=== PATIENT | female | born 1935 | race Caucasian/White ===

== ENCOUNTER 2017-07-03 23:50 | Observation (INO) | payer OTHER ==
[2017-07-04] MEDS: SOD CHLORIDE 0.9% 500 ML IV (02:24)
[2017-07-04 03:20] LABS: ADD MAN DIFF? NO
[2017-07-04 03:22] LABS: WHITE BLOOD COUNT 15.7 10^3/ul (4.8-10.8)
[2017-07-04 03:22] LABS: ABNORMAL IP MESSAGE 1; BASOPHILS % 0.1 % (0.0-2.0); EOSINOPHILS % 0.1 % (0.0-7.0); HEMATOCRIT 40.9 % (37.0-47.0); HEMOGLOBIN 13.3 g/dl (12.0-16.0); LYMPHOCYTES # 0.6 10^3/ul (0.8-2.9); LYMPHOCYTES % 3.6 % (15.0-51.0); MEAN CORPUSCULAR HGB CONC 32.5 g/dl (32.0-37.0); MEAN CORPUSCULAR VOLUME 92.1 fl (82.0-101.0); MONOCYTE # 1.1 10^3/ul (0.3-0.9); MONOCYTES % 7.1 % (0.0-11.0); NEUTROPHIL # 13.9 10^3/ul (1.6-7.5); NEUTROPHILS % 88.4 % (39.0-77.0); PLATELET COUNT 183 10^3/UL (140-415); RED BLOOD COUNT 4.44 10^6/ul (4.20-5.40); RED CELL DISTRIBUTION WIDTH 14.1 % (11.5-14.5)
[2017-07-04 03:23] LABS: POSITIVE DIFF @See below
[2017-07-04 03:57] LABS: ALANINE AMINOTRANSFERASE 43 IU/L (13-69); ALBUMIN 4.1 g/dl (3.3-4.9); ALBUMIN/GLOBULIN RATIO 1.64; ALKALINE PHOSPHATASE 97 IU/L (42-121); ANION GAP 16 (8-16); ASPARTATE AMINO TRANSFERASE 33 IU/L (15-46); BILIRUBIN,INDIRECT 0.6 mg/dl (0-1.1); BILIRUBIN,TOTAL 0.6 mg/dl (0.2-1.3); BLOOD UREA NITROGEN 14 mg/dl (7-20); CALCIUM 9.7 mg/dl (8.4-10.2); CARBON DIOXIDE 27 mmol/L (21-31); CHLORIDE 105 mmol/L (97-110); CREATININE 0.88 mg/dl (0.44-1.00); GLUCOSE 108 mg/dl (70-220); LIPASE 50 U/L (23-300); POTASSIUM 4.1 mmol/L (3.5-5.1); SODIUM 144 mmol/L (135-144); TOTAL PROTEIN 6.6 g/dl (6.1-8.1)
[2017-07-04 04:01] LABS: ADD UMIC NO; UR ASCORBIC ACID 40 mg/dL (NEGATIVE); UR BILIRUBIN (Dip) NEGATIVE (NEGATIVE); UR BLOOD (Dip) NEGATIVE (NEGATIVE); UR CLARITY CLEAR (CLEAR); UR COLOR YELLOW (YELLOW); UR GLUCOSE (Dip) NEGATIVE (NEGATIVE); UR KETONES (Dip) NEGATIVE (NEGATIVE); UR LEUKOCYTE ESTERASE (Dip) NEGATIVE Leu/ul (NEGATIVE); UR NITRITE (Dip) NEGATIVE (NEGATIVE); UR SPECIFIC GRAVITY (Dip) 1.015 (1.003-1.030); UR TOTAL PROTEIN (Dip) NEGATIVE (NEGATIVE); UR UROBILINOGEN (Dip) NEGATIVE (NEGATIVE)
[2017-07-04] MEDS: CIPROFLOXACIN 400MG/D5W 200 ML IVPB (04:34)
[2017-07-04] MEDS ORDERED: morphine 2 MG INJ IV (07:00)
[2017-07-04] MEDS ORDERED: ONDANSETRON 4 MG INJ IV (07:00)
[2017-07-04] MEDS ORDERED: NACL 0.9% 3 ML SYG IV (07:00)
[2017-07-04] MEDS ORDERED: ALBUTEROL HFA 8 GM INHALER INH (07:00)
[2017-07-04] MEDS: SOD CHLORIDE 0.9% 1,000 ML IV ×2 (07:27→16:00)
[2017-07-04] MEDS: HEPARIN 5,000 UNIT/0.5 ML VIAL SC ×2 (08:26→21:31)
[2017-07-04] MEDS ORDERED: ASPIRIN (EC) 81 MG TAB PO (09:00)
[2017-07-04] MEDS ORDERED: CIPROFLOXACIN 400MG/D5W 200 ML IVPB (09:00)
[2017-07-04] MEDS: TRIMETHOPRIM/SULFAMETHOX (DS) TAB PO ×2 (09:32→21:29)
[2017-07-04] MEDS: ESCITALOPRAM 10 MG TAB PO (09:33)
[2017-07-04] MEDS: ASCORBIC ACID 500 MG TAB PO (09:36)
[2017-07-04] MEDS: ACETAMINOPHEN 325 MG TAB PO ×2 (09:38→21:29)
[2017-07-04] MEDS: ALBUTEROL/IPRATROPIUM (NEB) 3 ML AMP HHN (09:43)
[2017-07-04] MEDS: FLUDROCORTISONE 0.1 MG TAB PO (10:47)
[2017-07-04] MEDS ORDERED: ZOLPIDEM 5 MG TAB PO (14:30)
[2017-07-04] MEDS ORDERED: traMADol 50 MG TAB NGT (17:30)
[2017-07-04] MEDS ORDERED: PATIENT'S OWN MEDICATION PO (18:30)
[2017-07-04] MEDS: ATORVASTATIN 10 MG TAB PO (21:00)
[2017-07-04] MEDS: ASPIRIN (EC) 81 MG TAB PO (21:29)
[2017-07-04] MEDS: DONEPEZIL 5 MG TAB PO (21:29)
[2017-07-05 05:08] LABS: ADD MAN DIFF? NO
[2017-07-05 05:13] LABS: BASOPHILS % 0.4 % (0.0-2.0); EOSINOPHILS # 0.3 10^3/ul (0.0-0.5); EOSINOPHILS % 3.7 % (0.0-7.0); HEMATOCRIT 32.5 % (37.0-47.0); HEMOGLOBIN 10.5 g/dl (12.0-16.0); LYMPHOCYTES # 1.1 10^3/ul (0.8-2.9); LYMPHOCYTES % 13.6 % (15.0-51.0); MEAN CORPUSCULAR HEMOGLOBIN 29.6 pg (29.0-33.0); MEAN CORPUSCULAR HGB CONC 32.3 g/dl (32.0-37.0); MEAN CORPUSCULAR VOLUME 91.5 fl (82.0-101.0); MONOCYTE # 0.6 10^3/ul (0.3-0.9); MONOCYTES % 7.8 % (0.0-11.0); NEUTROPHIL # 5.8 10^3/ul (1.6-7.5); NEUTROPHILS % 74.1 % (39.0-77.0); PLATELET COUNT 142 10^3/UL (140-415); RED BLOOD COUNT 3.55 10^6/ul (4.20-5.40); RED CELL DISTRIBUTION WIDTH 14.4 % (11.5-14.5)
[2017-07-05 05:13] LABS: WHITE BLOOD COUNT 7.8 10^3/ul (4.8-10.8)
[2017-07-05 05:38] LABS: ALANINE AMINOTRANSFERASE 41 IU/L (13-69); ALBUMIN 3.1 g/dl (3.3-4.9); ALBUMIN/GLOBULIN RATIO 1.34; ALKALINE PHOSPHATASE 76 IU/L (42-121); ANION GAP 12 (8-16); ASPARTATE AMINO TRANSFERASE 33 IU/L (15-46); BILIRUBIN,INDIRECT 0.5 mg/dl (0-1.1); BILIRUBIN,TOTAL 0.5 mg/dl (0.2-1.3); BLOOD UREA NITROGEN 13 mg/dl (7-20); CALCIUM 8.4 mg/dl (8.4-10.2); CARBON DIOXIDE 25 mmol/L (21-31); CHLORIDE 110 mmol/L (97-110); CREATININE 0.71 mg/dl (0.44-1.00); GLUCOSE 99 mg/dl (70-220); PHOSPHORUS 3.6 mg/dl (2.5-4.9); POTASSIUM 3.9 mmol/L (3.5-5.1); SODIUM 143 mmol/L (135-144); TOTAL PROTEIN 5.4 g/dl (6.1-8.1)
[2017-07-05] MEDS: TRIMETHOPRIM/SULFAMETHOX (DS) TAB PO ×2 (09:59→20:21)
[2017-07-05] MEDS: FLUDROCORTISONE 0.1 MG TAB PO (09:59)
[2017-07-05] MEDS: ASCORBIC ACID 500 MG TAB PO (10:00)
[2017-07-05] MEDS: ESCITALOPRAM 10 MG TAB PO (10:00)
[2017-07-05] MEDS: HEPARIN 5,000 UNIT/0.5 ML VIAL SC ×2 (10:01→20:22)
[2017-07-05] MEDS: ACETAMINOPHEN 325 MG TAB PO ×2 (11:24→20:23)
[2017-07-05] MEDS: DONEPEZIL 5 MG TAB PO (20:20)
[2017-07-05] MEDS: BALSAM PERU/CASTOR OIL 60 GM TUBE TOP (20:20)
[2017-07-05] MEDS: QUETIAPINE 25 MG TAB PO (20:20)
[2017-07-05] MEDS: CHOLECALCIFEROL 1,000 UNIT TAB PO (20:20)
[2017-07-05] MEDS: ASPIRIN (EC) 81 MG TAB PO (20:21)
[2017-07-05] MEDS: ATORVASTATIN 10 MG TAB PO (20:21)
[2017-07-05] MEDS: CALCIUM/VITAMIN D (500/200) TAB PO (20:21)
[2017-07-05] MEDS ORDERED: [UNRECOGNIZED DRUG - OTHER] PO (21:00)
[2017-07-05] MEDS ORDERED: VITAMIN D3 PO (21:00)
[2017-07-05] MEDS ORDERED: CA CARBONATE PO (21:00)
[2017-07-05] MEDS ORDERED: VIT K PO (21:00)
[2017-07-06] MEDS: CALCIUM/VITAMIN D (500/200) TAB PO ×2 (09:00→21:27)
[2017-07-06] MEDS: BALSAM PERU/CASTOR OIL 60 GM TUBE TOP ×2 (09:00→21:54)
[2017-07-06] MEDS: HEPARIN 5,000 UNIT/0.5 ML VIAL SC ×2 (09:00→21:28)
[2017-07-06] MEDS: FLUDROCORTISONE 0.1 MG TAB PO (09:00)
[2017-07-06] MEDS: ESCITALOPRAM 10 MG TAB PO (09:00)
[2017-07-06] MEDS: TRIMETHOPRIM/SULFAMETHOX (DS) TAB PO ×2 (09:00→21:27)
[2017-07-06] MEDS: ASCORBIC ACID 500 MG TAB PO (09:00)
[2017-07-06] MEDS: CHOLECALCIFEROL 1,000 UNIT TAB PO ×2 (09:00→21:27)
[2017-07-06] MEDS: ACETAMINOPHEN 325 MG TAB PO (20:48)
[2017-07-06] MEDS: ATORVASTATIN 10 MG TAB PO (21:27)
[2017-07-06] MEDS: ASPIRIN (EC) 81 MG TAB PO (21:27)
[2017-07-06] MEDS: DONEPEZIL 5 MG TAB PO (21:27)
[2017-07-06] MEDS: QUETIAPINE 25 MG TAB PO (21:51)
[2017-07-07] MEDS: BALSAM PERU/CASTOR OIL 60 GM TUBE TOP ×2 (09:00→14:24)
[2017-07-07] MEDS: INFLUENZA VIRUS VACCINE 0.5 ML (DISPENSING) IM* (09:00)
[2017-07-07] MEDS: HEPARIN 5,000 UNIT/0.5 ML VIAL SC (09:00)
[2017-07-07] MEDS: CALCIUM/VITAMIN D (500/200) TAB PO (09:56)
[2017-07-07] MEDS: ASCORBIC ACID 500 MG TAB PO (09:56)
[2017-07-07] MEDS: FLUDROCORTISONE 0.1 MG TAB PO (09:56)
[2017-07-07] MEDS: CHOLECALCIFEROL 1,000 UNIT TAB PO (09:56)
[2017-07-07] MEDS: ESCITALOPRAM 10 MG TAB PO (09:56)
[2017-07-07] MEDS: ACETAMINOPHEN 325 MG TAB PO (09:57)
[2017-07-07] MEDS: TRIMETHOPRIM/SULFAMETHOX (DS) TAB PO (09:58)
[2017-07-07 10:08] LABS: ADD MAN DIFF? NO
[2017-07-07 10:11] LABS: BASOPHILS % 0.5 % (0.0-2.0); EOSINOPHILS # 0.3 10^3/ul (0.0-0.5); EOSINOPHILS % 4.5 % (0.0-7.0); HEMATOCRIT 36.7 % (37.0-47.0); HEMOGLOBIN 12.1 g/dl (12.0-16.0); LYMPHOCYTES # 1.2 10^3/ul (0.8-2.9); LYMPHOCYTES % 15.7 % (15.0-51.0); MEAN CORPUSCULAR HEMOGLOBIN 29.6 pg (29.0-33.0); MEAN CORPUSCULAR VOLUME 89.7 fl (82.0-101.0); MEAN PLATELET VOLUME 10.8 fl (7.4-10.4); MONOCYTE # 0.8 10^3/ul (0.3-0.9); MONOCYTES % 10.4 % (0.0-11.0); NEUTROPHIL # 5.1 10^3/ul (1.6-7.5); NEUTROPHILS % 68.8 % (39.0-77.0); PLATELET COUNT 150 10^3/UL (140-415); RED BLOOD COUNT 4.09 10^6/ul (4.20-5.40); RED CELL DISTRIBUTION WIDTH 14.4 % (11.5-14.5)
[2017-07-07 10:11] LABS: WHITE BLOOD COUNT 7.4 10^3/ul (4.8-10.8)
[2017-07-07 10:36] LABS: PHOSPHORUS 3.6 mg/dl (2.5-4.9)
[2017-07-07 10:43] LABS: ANION GAP 16 (8-16); BLOOD UREA NITROGEN 20 mg/dl (7-20); CALCIUM 9.4 mg/dl (8.4-10.2); CARBON DIOXIDE 24 mmol/L (21-31); CHLORIDE 107 mmol/L (97-110); CREATININE 0.78 mg/dl (0.44-1.00); GLUCOSE 123 mg/dl (70-220); POTASSIUM 3.9 mmol/L (3.5-5.1); SODIUM 143 mmol/L (135-144)
== END 2017-07-07 14:59 | disposition home or self-care (01) ==
LOC: E/R 23:50 → PP2 07-04 03:58
DX: R55 Syncope and collapse (principal); G30.9 Alzheimer's disease, unspecified; F02.80 Dementia in other diseases classified elsewhere, unspecified severity, without behavioral disturbance, psychotic disturbance, mood disturbance, and anxiety; J45.909 Unspecified asthma, uncomplicated; E78.5 Hyperlipidemia, unspecified; N39.0 Urinary tract infection, site not specified; E78.00 Pure hypercholesterolemia, unspecified; Z95.0 Presence of cardiac pacemaker; Z87.891 Personal history of nicotine dependence
CPT/HCPCS: 36415; 70450; 73520; 80048; 80053; 81003; 83690; 83735; 84100; 85025; 87086; 92610; 93306; 93880; 94664; 96374; 97110; 97163; 97530; 99217; 99285-25; G0378